=== PATIENT | male | born 1960 | race Caucasian/White ===

== ENCOUNTER 2016-11-07 14:16 | Inpatient (IN) | payer OTHER ==
[~2016-11-07] VITALS: Ht 177.8 cm; Wt 146.2 kg
--- NOTE | ~2016-11-07 | EKG ---
PATIENT: SHANDRA KIM UNIT #: [id number] Ventricular Rate: 97 BPM Atrial Rate: 89 BPM QRS Duration: 100 ms Q-T Interval: 362 ms QTC Calculation(Bezet): 459 ms Calculated R [place]: 84 degrees Calculated T [place]: 130 degrees Diagnosis Line: Atrial fibrillation Diagnosis Line: Nonspecific T wave abnormality , probably Diagnosis Line: digitalis effect Diagnosis Line: Abnormal ECG Diagnosis Line: When compared with ECG of 07-NOV-2016 14:22, Diagnosis Line: No significant change was found Diagnosis Line: Confirmed by BRAN DAVID MD ([id number]) on Diagnosis Line: 11/08/2016 10:39:29 PM INTERPRETING MD: RAMAN
--- NOTE | ~2016-11-07 | CR72 ---
[facility] RADIOLOGY TEXT RESULTS PATIENT: SHANDRA KIM JR LOCATION: [facility] : 60 UNIT #: [id number] AGE: [address]: Indra Sharma MD SEX: M ORDER DR: [id number] [place], [place] [address] [id number] I MR#: [id number] Acc #: [id number] NAME: SHANDRA KIM JR : 1960 SEX: M STUDY DATE/TIME: 11/07/2016 15:07 UNIT: [address] ROOM: [address] [place] [address] DESCRIPTION: CR Chest Single View Portable Attending Physician: Latesha Whitney M.D. Ordering Physician: [facility] Primary Care Physician: Baldomero Donald M.D. MEDICAL IMAGING REPORT This report is preliminary unless electronic signature is present EXAM Portable chest x-ray 11/07/2016 HISTORY Shortness of air. Palpitations. Symptoms 1 month duration. Congestive heart failure. Atrial fibrillation. Diabetes. TECHNIQUE Two AP radiographs of the chest are presented. COMPARISON STUDIES Comparison from earlier on the same day. FINDINGS Moderate cardiac enlargement, stable. No acute-appearing bony abnormality. The lungs are well-inflated. There is no evidence of acute infectious or inflammatory disease, pleural effusion or pneumothorax. No suspicious nodule. Dictated by... Payam Dietrich M.D. THIS IS AN ELECTRONICALLY VERIFIED REPORT Payam Dietrich M.D. at 11/09/2016 2:47 PM CLARE/roseanna TD: 11/07/2016 21:02 JOB #: [id number] MEDICAL IMAGING REPORT [facility] RADIOLOGY TEXT RESULTS PATIENT: SHANDRA KIM JR LOCATION: [facility] : 60 UNIT #: [id number] AGE: [address]: Indra Sharma MD SEX: M ORDER DR: Page 1 of 1 COPY
--- NOTE | ~2016-11-07 | DS ---
Unit #: [id number] #: [id number] Patient: SHANDRA KIM JR [id number] [address] [address] [id number] I MR#: [id number] NAME: SHANDRA KIM JR ROOM: 308 Age: 56 Sex: M Admission Date: 11/07/2016 : 1960 Discharge Date: 11/14/2016 Attending Physician: Ignacio Abraham M.D. Primary Care Physician: Baldomero Donald M.D. DISCHARGE SUMMARY PERTINENT HISTORY AND HOSPITAL COURSE The patient is a 56-year-old man with a past medical history significant for congestive heart failure, valvular heart disease, obstructive sleep apnea, diabetes mellitus, hypertension, hyperlipidemia who presented with symptoms of shortness of breath and chest tightness. During his admission, the patient had an echocardiogram (transthoracic) that demonstrated a left ventricular systolic function which was severely reduced 20% to 25%, severe global hypokinesis of the left ventricle, right ventricular systolic pressure of 60 mmHg, severe mitral regurgitation, and severe tricuspid regurgitation. The patient also underwent a cardiac catheterization that demonstrated left ventricular ejection fraction of 20%. No angiographic evidence of MR. LAD had a 50% stenosis, diagonal 70% stenosis. Cardiology suggested medical management. Also during his admission, his creatinine was initially noted to be elevated at 1.5. It subsequently improved to 1.1. Nephrology recommended diuresis with torsemide. Bumex was discontinued. Cardiology started the patient on Entresto. Patient is currently breathing comfortably. His vitals are stable. The patient will be discharged today. DISCHARGE DIAGNOSES 1. Acute on chronic systolic congestive heart failure. 2. Severe pulmonary hypertension. 3. Atrial fibrillation. 4. Diabetes mellitus. 5. Morbid obesity with acute on chronic renal failure. DISCHARGE MEDICATIONS 1. Digoxin 0.25 mg p.o. once daily. 2. Metoprolol 100 mg twice daily. 3. Clonidine 0.1 mg p.o. twice daily. 4. Lantus insulin 30 units subcutaneous at bedtime. 5. NovoLog FlexPen 4 units subcutaneous a.c. meals. 6. Entresto 24 mg tab one p.o. twice daily. 7. Magnesium oxide 400 mg daily. 8. Eliquis 5 mg p.o. b.i.d. 9. Lipitor 80 mg p.o. at bedtime. 10. Aspirin 81 mg once daily. 11. Potassium 20 mEq twice daily. 12. Glipizide 10 mg p.o. b.i.d. 13. Isosorbide 20 mg p.o. twice daily. 14. Torsemide 40 mg p.o. twice daily. DISCHARGE INSTRUCTIONS 1. Patient to follow up with nephrology, Dr. Deutsch, in four to six Unit #: [id number] #: [id number] Patient: SHANDRA KMI [facility]. 2. Patient to follow up with cardiology, Dr. Miner, on January 15. 3. Patient to follow up with primary care physician. Dictated by... Red Koehler TD: 11/15/2016 13:37 JOB #: [id number] DISCHARGE SUMMARY Page 1 of 1 X X DISCHARGE SUMMARY
--- NOTE | ~2016-11-07 | HP ---
Unit #: [id number] #: [id number] Patient: SHANDRA KIM JR [id number] [facility]. [place], [place] [address] [id number] MR#: [id number] NAME: SHANDRA KIM JR ROOM: 308 Age: 56 Sex: M Admission Date: 11/07/2016 : 1960 Attending Physician: Latesha Whitney M.D. Primary Care Physician: Baldomero Donald M.D. HISTORY AND PHYSICAL CHIEF COMPLAINT Shortness of breath. HISTORY OF PRESENT ILLNESS The patient is a 56-year-old male with past medical history of CHF, valvular heart disease, obstructive sleep apnea, diabetes, hypertension, hyperlipidemia, who presented to the emergency department for evaluation of the above. The patient states that he has had worsening symptoms for the past month. He states that he has had increasing shortness of breath and intermittent chest tightness. He states that he had dyspnea on exertion when walking "10 feet." He also reports palpitations. He has two pillow orthopnea as well as paroxysmal nocturnal dyspnea. He denies any fever. No cough. He states that he has noted increased lower extremity swelling. He does not routinely weight himself. He states that he has been out of some medications. He notes he has been out of spironolactone. He is not sure which other medication he has been out of. He saw his primary care physician today. Heart rate was noted to be in the 120s. Oxygen saturation dropped to 84% on room air. He was sent to the emergency department for further evaluation. In the emergency department the patient's initial pulse and blood pressure were 124 and 141/112 respectively. Oxygen saturation was 95% on room air. EKG showed atrial fibrillation with rapid ventricular response and a rate of 117 beats per minute. Chest x-ray showed findings concerning for congestive heart failure. Initial troponin was 0.13. Laboratory also notable for potassium of 3.3, glucose 260, BUN and creatinine 20 and 1.5 respectively. He received 20 mg of Cardizem in the emergency department. Heart rate is currently 92. He was initially seen by Cardiology. [facility] was asked to admit. PAST MEDICAL HISTORY 1. Admission to [facility] July 07, 2009 for congestive heart failure. 2. Congestive heart failure. The patient had a transesophageal echocardiogram October 19, 2009 that showed moderate concentric left ventricular hypertrophy, ejection fraction 35% to 40%. moderate mitral regurgitation, mild to moderate tricuspid regurgitation. The patient is followed by Dr. Ortiz. 3. Atrial fibrillation, on chronic anticoagulation with Eliquis. 4. Valvular heart disease with echocardiogram, results as noted above. 5. Hypertension. 6. Hyperlipidemia. 7. Diabetes. The patient states that his blood sugars are typically in Unit #: [id number] #: [id number] Patient: SHANDRA KIM JR the 250 to 400 range. 8. Obstructive sleep apnea, on CPAP. PAST SURGICAL HISTORY 1. Cardiac catheterization. The patient had a cardiac catheterization July 12, 2009 that showed moderately severe pulmonary hypertension and minimal coronary artery disease. 2. Wrist surgery. 3. Hernia repair. SOCIAL HISTORY The patient lives with his . He denies tobacco or alcohol use. He typically walks without assistance. He works as an artist. His code status is a Full Code. FAMILY HISTORY Family history is notable for his mother having valvular heart disease and congestive heart failure. ALLERGIES No known allergies. HOME MEDICATIONS 1. Bumex 2 mg b.i.d. 2. Meloxicam 15 mg daily p.r.n. 3. Metformin 1000 mg b.i.d. 4. Metoprolol 150 mg b.i.d. 5. Catapres 0.1 mg t.i.d. 6. Glipizide 10 mg b.i.d. 7. Eliquis 5 mg b.i.d. 8. Avapro 300 mg q.h.s. 9. Lantus 30 units subcu q.h.s. REVIEW OF SYSTEMS A complete review of systems is negative except as indicated in the HPI. DIAGNOSTIC STUDIES CARDIOVASCULAR: EKG shows atrial fibrillation with rapid ventricular response and a rate of 117 beats per minute. IMAGING: Chest x-ray shows moderate cardiac enlargement and vascular congestion. LABORATORY: Complete blood count notable for white blood cell count of 10.9. Troponin is 0.13. INR is 1. Basic metabolic panel notable for potassium of 3.3, chloride is 97 and glucose 260, BUN and creatinine 20 and 1.5 respectively. PHYSICAL EXAMINATION VITAL SIGNS: Temperature is 98.3. Pulse 124. Respirations 18. Blood pressure 141/112. Oxygen saturation 95% on room air. GENERAL: The patient is a very pleasant male who is awake and alert, in no acute distress. HEENT: The head is atraumatic. Mucous membranes are moist. NECK: Neck is supple. Trachea is midline. CARDIOVASCULAR: Irregular. LUNGS: Demonstrate decreased breath sounds. Breathing is mildly labored with conversation. Unit #: [id number] #: [id number] Patient: SHANDRA KIM JR ABDOMEN: Abdomen is obese, soft, nontender, with bowel sounds in all four quadrants. EXTREMITIES: Show 1 to 2+ edema. NEUROLOGIC: The patient is awake and alert. He follows commands. PSYCHIATRIC: Mood and affect are normal. The patient is cooperative. SKIN: Skin of examined areas is warm and dry. ASSESSMENT The patient is a 56-year-old male with: 1. Atrial fibrillation with rapid ventricular response. The patient received 20 mg of Cardizem in the emergency department. Heart rate is currently in the 90s. 2. Congestive heart failure exacerbation. The patient's ejection fraction was 35% to 40% on echocardiogram from October 19, 2009. He possibly had an echocardiogram at Dr. Ortiz's office around six weeks ago (no records). 3. Acute kidney injury. The patient's creatinine has previously been normal. It is 1.5 today. He is on metformin as well as Mobic and Bumex which could be contributing. 4. Hypokalemia. 5. Chest pain with an initial troponin of 0.13. The patient had a cardiac catheterization in 2009 that showed minimal coronary artery disease. 6. Valvular heart disease as noted in the echocardiogram from 2009. 7. Obstructive sleep apnea, on CPAP. 8. Chronic anticoagulation with Eliquis. 9. Uncontrolled diabetes with initial blood sugar of 260. 10. Hypertension. 11. Hyperlipidemia. 12. Morbid obesity with a BMI of 47. PLAN 1. Admit to intermediate level. 2. Two gram sodium 1800 mL fluid restricted heart healthy consistent carb diet. 3. Serial cardiac enzymes. 4. TSH. 5. Monitor heart rate closely. 6. Consult Dr. Miner regarding atrial fibrillation with rapid ventricular response, CHF and chest pain. She has already seen the patient and written orders. 7. Check urinalysis with culture and sensitivity. 8. Bladder scan, check post-void residual. 9. CPK on blood in the lab. 10. Hold nephrotoxic medications including Bumex, Meloxicam, metformin. 11. Dr. Polanco has already been consulted by Dr. Miner regarding acute kidney injury. 12. Replace potassium. 13. Check magnesium level. 14. Supplemental oxygen. 15. CPAP at home settings. 16. Hemoglobin A1C. 17. Low dose sliding scale insulin with Accu-Chek. 18. Repeat labs in the morning. 19. Additional workup and consultants based on above. 20. Regarding code status, the patient is a Full Code. Unit #: [id number] #: [id number] Patient: SHANDRA KIM Jose F Dictated by Red Tirado/jareth TD: 11/07/2016 20:07 JOB #: [id number] HISTORY AND PHYSICAL Page 1 of 1 X Latesha Whitney MD HISTORY AND PHYSICAL
--- NOTE | ~2016-11-07 | EKG ---
PATIENT: SHANDRA KIM UNIT #: [id number] Ventricular Rate: 104 BPM Atrial Rate: 91 BPM QRS Duration: 100 ms Q-T Interval: 374 ms QTC Calculation(Bezet): 491 ms Calculated R [place]: 85 degrees Calculated T [place]: 93 degrees Diagnosis Line: Atrial fibrillation with rapid ventricular Diagnosis Line: response Diagnosis Line: Nonspecific T wave abnormality , probably Diagnosis Line: digitalis effect Diagnosis Line: Abnormal ECG Diagnosis Line: When compared with ECG of 08-NOV-2016 06:20, Diagnosis Line: No significant change was found Diagnosis Line: Confirmed by YASMINE TOMPKINS MD ([id number]) on 11/13/2016 Diagnosis Line: 10:10:18 PM INTERPRETING MD: LEDA KAUR
--- NOTE | ~2016-11-07 | EKG ---
PATIENT: SHANDRA KIM UNIT #: [id number] Ventricular Rate: 117 BPM Atrial Rate: 117 BPM QRS Duration: 102 ms Q-T Interval: 376 ms QTC Calculation(Bezet): 524 ms Calculated R [place]: 73 degrees Calculated T [place]: 137 degrees Diagnosis Line: Atrial fibrillation with rapid ventricular Diagnosis Line: response with premature ventricular or aberrantly Diagnosis Line: conducted complexes Diagnosis Line: Nonspecific T wave abnormality Diagnosis Line: Prolonged QT Diagnosis Line: Abnormal ECG Diagnosis Line: When compared with ECG of 21-MAR-2015 09:19, Diagnosis Line: Non-specific change in ST segment in Inferior Diagnosis Line: leads Diagnosis Line: ST now depressed in Lateral leads Diagnosis Line: T wave inversion no longer evident in Inferior Diagnosis Line: leads Diagnosis Line: Confirmed by BRAN DAVID MD ([id number]) on Diagnosis Line: 11/07/2016 3:35:09 PM INTERPRETING MD: RAMAN
--- NOTE | ~2016-11-07 | A ---
[facility] Nutrition Therapy DATE: 11/08/16 Patient: SHANDRA Kohler JR JUDY Physician: KEE Address: [address] [address] [facility] Room/Bed: [address] [place] [address], Zip: [place] [address] Admit Date: 11/07/16 Date of : [birth year] Height: 5 10 Weight: 326 148.2 NUTRITIONAL ASSESSMENT: REASON: High BMI documentation, consult for evaluation Admitting dx: 56 y/o male admitted with SOB (CHF exacerbation) PMH: CHF, DM, HTN, HLD, RAMÍREZ on CPAP, valvular heart disease Anthropometrics: Ht: 70", Wt: 148.2 kg, BMI 46 (stage III obese) Labs: glucose 301, POC 210-273, A1C 10.9, triglycerides 722 Meds: Glucotrol, dobutamine/D5, low SSI, levemir Diet: 2g sodium + 1800 ml fluid restriction Assessment: Chart reviewed, events noted. See admitting dx and PMH as stated above. RD consulted to evaluate the patient, who needs diet education. Stated his blood glucose usually ranges between 250-400 at home and he takes insulin and oral DM medications at home. RD provided verbal and written education on low sodium diet and fluid restriction, emphasizing daily weights and the relationship between salt, fluids, weight fluctuations and CHF. The patient was also given written diabetes diet education with an 1800 calorie/day 5-day sample meal plan, however he did not wish to verbally review the diabetes handouts with me at this time, stating he did not feel well and has received diet education in the past. He lives with his , but she was not present for the education. The patient was compliant throughout the education, but seemed somewhat uninterested. I suspect questionable compliance with diet after discharge. See recs below. Recommendations: 1. RD adding 75 g carb/meal diet restriction to current diet order (2g sodium + 1800 ml fluid restriction) due to hx of DM, elevated A1C and hyperglycemia. 2. RD provided diet education as described above. Encourage compliance with low sodium restriction, fluid restriction and consistent carb diet after discharge. Encourage weight loss. 3. Daily weights. 4. Consider adding a daily statin and 2g omega 3 fatty acids to the patient's medication regimen to help lower serium triglycerides. [facility] Nutrition Therapy DATE: 11/08/16 Patient: SHANDRA KIM JR Physician: KEE Address: [address] [facility] Room/Bed: [address] [place] [address], Zip: [place] [address] Admit Date: 11/07/16 Date of : [birth year] Height: 5 10 Weight: 326 148.2 Respectfully, Joyce Estrada RD, LD [facility] cc: client file
--- NOTE | ~2016-11-07 | CO ---
Unit #: [id number] #: [id number] Patient: SHANDRA KIM JR [id number] [address] [id number] I MR#: [id number] NAME: SHANDRA KIM JR ROOM: 308 Age: 56 Sex: M Admission Date: 11/07/2016 : 1960 Attending Physician: Indra Sharma M.D. Primary Care Physician: Baldomero Donald M.D. Consultation Date: 11/07/2016 CONSULTATION REPORT ADDENDUM FAMILY HISTORY Mother has a history of congestive heart failure and atrial fibrillation as well as valvular abnormality with a history of valve replacement. Dictated by... Stefani Hidalgo A.P.R.N. LMW/gz TD: 11/08/2016 09:05 JOB #: [id number] CONSULTATION REPORT Page 1 of 1 X Stefani Hidalgo APRN X CONSULTATION REPORT
--- NOTE | ~2016-11-07 | CO ---
Unit #: [id number] #: [id number] Patient: SHANDRA KIM JR [id number] [facility]. [address] [place], [place] [address] [id number] I MR#: [id number] NAME: SHANDRA KIM JR ROOM: 308 Age: 56 Sex: M Admission Date: 11/07/2016 : 1960 Attending Physician: Indra Sharma M.D. Primary Care Physician: Baldomero Donald M.D. Consultation Date: 11/07/2016 CONSULTATION REPORT HISTORY OF PRESENT ILLNESS This is a pleasant 56-year-old, morbidly obese, male who typically follows with Dr. Ortiz. He reports he saw him approximately six weeks ago in the office. The patient has a known past medical history of hypertension, hyperlipidemia, diabetes mellitus type 2, obesity, obstructive sleep apnea compliant with CPAP, paroxysmal atrial fibrillation on chronic anticoagulation on Eliquis, and systolic congestive heart failure as well as valvular heart disease. The patient reports to me that he has been having increasing issues for the last couple of months with shortness of breath with minimal activity and fatigue but he states he has just been dealing with it. He reports yesterday evening he went to sleep with his CPAP on and woke from sleep choking and gagging and couldn't breathe. He states he sat up on the side of the bed, the breathing eased, but he did also feel his heart racing at that time. He also reports he has been noticing some lower extremity swelling recently as well as some episodes of chest tightness. The patient went in to see Dr. Donald, his primary care physician, who did an EKG on him in the office and found him to be in atrial fibrillation with RVR and, based on his symptoms, recommended he come to the emergency room for evaluation. On arrival to the ER, EKG was performed which did show and confirmed atrial fibrillation with a rapid ventricular rate of 117 beats per minute, occasional PVC, nonspecific T wave abnormality was noted. QTC interval was 524 msec. No acute ischemic change was noted. Point of care troponin was 0.13. The patient received 20 mg of Cardizem IV push. It was also notable that his blood pressure was elevated on arrival to the emergency room at 141/112. His heart rate has slowed at this time and is more controlled. He has been evaluated in room T14. He still is complaining of some shortness of breath with minimal exertion but denies any further chest tightness at this time. The patient also states that his diet is not good and his diabetes is poorly controlled. It is also notable the patient's creatinine was found to be elevated at 1.5 which is up from his most recent creatinine level of 0.9 back in February of 2015 and was also noted to have a potassium level of 3.3. It is also notable the patient had some history of valvular heart disease which has been monitored over the last several years. His most recent MIKAELA in 2009 showed an LVEF of 35 to 40 with moderate MR, mild to moderate TR and moderate LVH. The patient reports that Dr. Ortiz Unit #: [id number] #: [id number] Patient: SHANDRA KIM JR has told him that his heart function has been improving over time as there was some question at one point about him having valve replacement surgery. However, this was never performed. PAST MEDICAL HISTORY 1. Hypertension. 2. Dyslipidemia. 3. Obstructive sleep apnea, compliant with CPAP. 4. Degenerative joint disease. 5. Diabetes mellitus type 2. 6. Paroxysmal atrial fibrillation, on anticoagulation with Eliquis. 7. Chronic CHF. 8. Valvular heart disease. 9. MIKAELA in 2009 showed an LVEF of 35 to 40, moderate MR, mild to moderate TR and moderate LVH. 10. Left heart cath in 2009 showed moderate to severe pulmonary hypotension with some reversibility and minimal coronary artery disease. PAST SURGICAL HISTORY 1. Incarcerated ventral hernia repair. 2. Left and right heart cath in 2009. 3. History of cardioversion, unsuccessful, in 2009. 4. Morbid obesity. HOME MEDICATIONS 1. Bumex 2 mg p.o. b.i.d. 2. Mobic 15 mg p.o. daily. 3. Glucophage 1000 mg p.o. b.i.d. 4. Metoprolol succinate 150 mg p.o. b.i.d. 5. Catapres 0.1 mg p.o. t.i.d. 6. Glipizide 10 mg p.o. b.i.d. 7. Eliquis 5 mg p.o. b.i.d. 8. Avapro 300 mg p.o. q. h.s. 9. Lantus 30 units subcu at bedtime. ALLERGIES No known drug allergies. 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 He is self-employed. He is a lifelong nonsmoker. He denies illicit drugs or alcohol use. He is blind in his right eye. REVIEW OF SYSTEMS GENERAL: Positive for weight gain and fatigue. NEUROLOGICAL: He denies focal weaknesses. Does report some paresthesia in his fingers and toes. GI: Denies abdominal pain, melena or hematochezia. : Does report urinary hesitancy but denies any hematuria or dysuria. ENDOCRINE: Positive for diabetes. No history of thyroid disease. CARDIOVASCULAR: As stated above. PULMONARY: Positive for obstructive sleep apnea, compliant with CPAP. Does report shortness of breath, PND and orthopnea. EXTREMITIES: Positive intermittent lower extremity swelling. Denies DVT or easy bruising. PHYSICAL EXAMINATION Unit #: [id number] #: [id number] Patient: SHANDRA KIM GENERAL: This is a pleasant 56-year-old, morbidly obese, male evaluated in room T14 in the emergency room. He is currently in no acute distress. He just returned from the bathroom and is visibly short of breath with minimal ambulation. Patient's BMI is about 47. VITAL SIGNS: Temperature 98.2, respiratory rate 18-20, pulse currently 90, blood pressure 122/81, BMI is 47. HEENT: Head is atraumatic, normocephalic. Pupils are equal and round. The patient is blind in the right eye. NECK: Trachea is midline. No lymphadenopathy or JVD. Carotid upstrokes are normal. CARDIOVASCULAR: S1, S2. Irregularly irregular rhythm. No murmur, gallop or rub. PULMONARY: Lungs are clear to auscultation. No adventitious breath sounds. No rales, no rhonchi or wheezes. ABDOMEN: Soft, obese, pannus. Nontender, nondistended. Bowel sounds are present. EXTREMITIES: Pulses are palpable. No clubbing, cyanosis is noted. The patient does have about 1+ pedal edema bilaterally. NEUROLOGIC: He is awake, alert and oriented. He moves all extremities equally. He is able to answer questions with ease and follow commands without difficulty. SKIN: Warm and dry. No open wounds are noted. DIAGNOSTIC STUDIES IMAGING: Chest x-ray shows some cardiac enlargement but no acute disease. LABORATORY: Sodium 140, potassium 3.3, chloride 97, CO2 30, BUN 20, creatinine 1.5, glucose 260, troponin point of care was 0.13. Hemoglobin 13.3, hematocrit 38.9, WBC 10.9, platelet count 222. CARDIOVASCULAR: EKG shows atrial fibrillation with rapid ventricular response, rate of 117 beats per minute. Nonspecific T wave abnormality is noted. No acute ischemic change. QTC interval is 524 msec. IMPRESSION 1. Atrial fibrillation with RVR with a known history of chronic atrial fibrillation on chronic anticoagulation therapy with Eliquis. 2. Acute on chronic systolic CHF, last known MIKAELA EF was 35 to 40. However, the patient does state he has had improvement in his ejection fraction and is followed by Dr. Ortiz. 3. History of valvular heart disease with moderate mitral regurgitation, mild to moderate tricuspid regurgitation, and moderate LVH. Again, this has improved, according to the patient, over time and there was no need for valvular surgery. 4. Pulmonary hypertension. 5. Hypertension. 6. Hyperlipidemia. 7. Diabetes mellitus type 2. 8. Morbid obesity. 9. Obstructive sleep apnea, compliant with CPAP. 10. Hypokalemia. 11. Acute kidney injury. PLAN 1. The patient has been admitted for increasing shortness of breath, PND and orthopnea as well as complaints of chest tightness. He was found to be in atrial fibrillation with RVR. The patient has been given a Cardizem bolus and his rate has slowed. Will plan to resume his Unit #: [id number] #: [id number] Patient: SHANDRA KIM Jose F RICHARDSON metoprolol for rate control. His Eliquis will be placed on hold at this time in case cardiac intervention is needed. Initial point of care troponin was 0.13. Will trend cardiac enzymes with orders to call if troponin is greater than 0.5. Will also check BNP to blood in lab as well as a fasting lipid profile. Hemoglobin A1c and a TSH. 2. Will repeat 2D echocardiogram to reassess left ventricular systolic function as well as his valvular abnormalities. I will also get supervisor mold shop to see as the patient has issues with his diabetes and dietary restriction. He will be started on Lovenox 120 mg subcu daily and that is to be started on 10/29/2016. Will repeat BMP, troponin and EKG in the morning. 3. Will also ask Dr. Polanco to evaluate the patient for acute kidney injury. For now, his diuretics will be placed on hold and his irbesartan will also be stopped. 4. Further recommendations regarding ischemic workup will be determined after the echo is reviewed. The patient may need repeat ischemic evaluation in the near future. If he rules in for acute coronary syndrome, then most likely cardiac cath will need to be considered. I have also discussed with the patient the importance of losing weight. Further recommendations pending the outcome of repeat 2D echocardiogram and diuretics per renal recommendations. All of this was discussed with the patient and the and they were agreeable and willing to proceed. Also, we are asking HIPS to be the admitting physician on this case as the patient does have multiple medical issues that need management. Dictated by... Stefani Hidalgo A.P.R.N. for Namrata Miner M.D. LMW/df TD: 11/08/2016 09:29 JOB #: [id number] CONSULTATION REPORT Page 1 of 1 X Stefani Hidalgo APRN X CONSULTATION REPORT
--- NOTE | ~2016-11-07 | CO ---
Unit #: [id number] #: [id number] Patient: SHANDRA SEGURA JR [id number] [address] [place], [place] [address] [id number] MR#: [id number] NAME: SHANDRA SEGURA JR ROOM: 308 Age: 56 Sex: M Admission Date: 11/07/2016 : 1960 Attending Physician: Indra Sharma M.D. Primary Care Physician: Baldomero Donald M.D. Consultation Date: 11/07/2016 CONSULTATION REPORT REASON FOR CONSULT Acute kidney injury. HISTORY OF PRESENT ILLNESS Mr. Segura is a very pleasant 56-year-old gentleman with a history of known congestive heart failure, valvular heart disease, hypertension and diabetes, who was admitted with worsening dyspnea on exertion. The patient was found to be in A-fib with rapid ventricular response on admission with a pulse of 124 and was given some IV Cardizem. Cardiology has been asked to see. His normal warehouse director is Dr. Ortiz who does not come here to the hospital anymore as he is a [facility]'s physician. The patient states that this problem with his breathing has been gradually getting worse to the point where he sought care with Dr. Donald today. He does take diuretics at home and was taking extra Bumex. He does not do daily weights but does feel like he has gained weight, especially with swelling in his legs and abdomen. He did not have any chest pain with the atrial fibrillation. He denies any urinary complaints. No history of NSAID use, no history of kidney stones, no recent nausea, vomiting or diarrhea. PAST MEDICAL HISTORY 1. Significant for atrial fibrillation. 2. Congestive heart failure with an EF of 35%. 3. Valvular heart disease with severe mitral regurgitation and tricuspid regurgitation. 4. Pulmonary hypertension. 5. Obstructive sleep apnea. 6. Hypertension. 7. Diabetes. PAST SURGICAL HISTORY 1. Pelvic fracture. 2. Wrist fracture. 3. Hernia repair. MEDICATIONS Home medicines are as follows: 1. Bumex 2 mg twice a day. 2. Mobic 15 mg a day. 3. Glucophage 1000 mg twice a day on hold. 4. Metoprolol succinate 150 mg twice a day. 5. Catapres 0.1 mg three times a day. 6. Glipizide 10 mg twice a day. 7. Eliquis 5 mg twice a day. Unit #: [id number] #: [id number] Patient: SHANDRA SEGURA JR 8. Avapro 300 mg at bedtime. 9. Lantus insulin as directed. ALLERGIES He has no known drug allergies. FAMILY HISTORY There is a family history of congestive heart failure. There is no family history of kidney disease or dialysis with the exception of a distant cousin. SOCIAL HISTORY The patient does use marijuana. He denies alcohol, tobacco or IV drug use. REVIEW OF SYSTEMS A complete 12-point review of systems was completed with the above findings. In addition, he denies any headache, no dizziness, no nosebleed, sore throat or earache, no cough or hemoptysis, no bright red blood per rectum or melena, no dysuria or hematuria, no rashes or itching, no flank pain, no fevers or chills, no night sweats or hot flashes, no intolerance to heat or cold, no bleeding issues on his Eliquis. Again, he does think he has gained weight but cannot quantitate it. Unless otherwise indicated, the review of systems was negative. PHYSICAL EXAMINATION VITAL SIGNS: The patient is afebrile. Pulse 90, respiratory rate 20, blood pressure 133/86. GENERAL: This is a pleasant 56-year-old male sitting in the chair, alert, talkative, in no acute distress. HEENT: Head is atraumatic, normocephalic. Eyes show pink conjunctivae with no scleral icterus. No nasal drainage or nose bleed. Oropharynx is moist. No thrush. He has a very narrow posterior pharyngeal airway. NECK: Thick with no rigidity. HEART: Now regular rate but irregular with distant S1, S2. No gallop or rub appreciated. LUNGS: Diminished with no wheezing or rhonchi. Breathing is nonlabored. ABDOMEN: Morbidly obese, soft, nontender. Bowel sounds are present without masses. EXTREMITIES: No lower extremity cyanosis noted. He has tense lower extremity edema below the knees bilaterally. SKIN: Dry with no rashes. MUSCULOSKELETAL EXAM: No joint effusions noted, no CVA tenderness to palpation. NEUROLOGICAL EXAM: Cranial nerves are grossly intact with no gross motor deficits. LYMPHATIC EXAM: There is no neck cervical lymphadenopathy. PSYCHIATRIC EXAM: Mood and affect appear normal. DIAGNOSTIC STUDIES LABORATORY: Lipid profile showed high triglycerides at 722. CK level was 351. BNP was 192. Troponin 0.96. Chemistry on admission showed a sodium of 140, potassium 3.3, chloride 97, bicarb 30, glucose 260, BUN 20, creatinine 1.5, INR was 1. Admission CBC showed a white count of 10.9, hemoglobin 13, platelet count 222 with no peripheral eosinophilia. Prior creatinine here at [place] Unit #: [id number] #: [id number] Patient: SHANDRA SEGURA JR back in 2015 was 0.9 and normal. No previous UA's here. IMAGING: I did review previous imaging. I do not see any dedicated kidney imaging done. ASSESSMENT AND PLAN 1. Acute kidney injury: This is likely multifactorial and prerenal from his atrial fibrillation. Home Mobic use as well as an angiotensin receptor miki. He had also been taking extra Bumex. In addition, he could have some worsening kidney function from poorly controlled blood pressure as he says his blood pressure has been very high at home. Do agree with stopping his Meloxicam and his angiotensin receptor miki which Dr. Whitnye has done. We will also need to hold his metformin due to his renal insufficiency. I will check a urinalysis as well as quantitate urinary protein levels with his diabetes. Would avoid NSAIDs during the hospitalization and he would be at a moderate risk for heart catheterization dye and will need prep with fluids and Mucomyst if that is needed. 2. Hypokalemia. This is being replaced and I will recheck a level later tonight. Magnesium level has also been ordered. 3. Congestive heart failure which is systolic in nature. Patient does have dyspnea on exertion and says he dropped his sats into the low 80s at Dr. Donald's office. We will dose IV Bumex tonight with close monitoring of his potassium. 4. Hypertension. Patient's blood pressure is reasonable and most of his home medicines have been renewed except the Avapro. 5. Pulmonary hypertension with obstructive sleep apnea. 6. A-fib, now rate controlled. Cardiology seeing. 7. Diabetes. A1c has been ordered. His metformin should be held. 8. Obstructive sleep apnea, on CPAP at home. Would like to thank Dr. Whitney for this consult and the opportunity to participate in the evaluation and care of Mr. Segura. Dictated by... Pepito Deutsch Jr., M.D. SJK/raymond TD: 11/08/2016 11:06 JOB #: [id number] CONSULTATION REPORT Page 1 of 1 X Pepito Deutsch MD CONSULTATION REPORT
[~2016-11-07 14:16] MED LIST: ALDACTONE25 MG PO; ANTARA43 MG PO; ASPIRIN PO; ASPIRIN81 M1 PO; ASPIRIN81 MG PO; AVAPRO PO; AVAPRO300 M1 PO; BUMEX2 MG PO; CARDIZEM CD120 MG PO; CARDIZEM CD180 M1 PO; CARDIZEM CD180 M2 PO; CATAPRES0.1 MG PO; CLONIDINE HCL0.1 MG PO; COMBIVENT INH14.7 GM PO; COMBIVENT RESPIM4 GM; COMBIVENT U/D3 ML INH; CORDARONE200 M1 PO; COUMADIN5 MG PO; DILTIAZEM 24HR180 M1 PO; FENOFIBRATE160 MG PO; FLONASE 0.05% N16 GM; FLOVENT DISKU250 MCG INH; FUROSEMIDE40 MG PO; GLIPIZIDE10 MG PO; GLUCOPHAGE500 M1 PO; HCTZ PO; K-DUR20 ME2 PO; KCL PO; LASIX PO; LODINE PO; LODINE400 MG PO; LOVENOX120 MG/0.8 SUBQ; LOVENOX150 MG/ML SQ; METFORMIN HCL500 M2 PO; METOPROLOL SUCC50 MG PO; MOBIC15 MG PO; NORVASC PO; POTASSIUM CHLO10 ME1 PO; POTASSIUM CHLO10 ME2 PO; QVAR7.3 G1; QVAR7.3 G1 PO; TOPROL XL 50 MG50 MG PO; TOPROL XL PO; TOPROL XL50 MG PO; TRICOR PO; TYLOX 5/500 CAP1 CAP PO; XARELTO15 MG PO
[2016-11-07 15:10] LABS: BASOPHIL# 0.1 X10e3 (0-0.3); BASOPHIL% 0.6 % (0-2.5); EOSINOPHIL# 0.1 X10e3 (0-0.7); EOSINOPHIL% 1.3 % (0.0-7.0); HEMATOCRIT 38.9 % (38.0-50.0); HEMOGLOBIN 13.3 gm/dL (13.0-16.0); LYMPHOCYTE# 2.8 X10e3 (1.0-3.5); LYMPHOCYTE% 25.8 % (17.0-45.0); MEAN CELL VOLUME 84.8 FL (83-96); MEAN CORPUSCULAR HGB CONC 34.2 g/dL (30-36); MEAN PLATELET VOLUME 7.6 FL (6.5-11.5); MONOCYTE# 0.9 X10e3 (0-1.0); MONOCYTE% 8.4 % (3.0-12.0); NEUTROPHIL# 6.9 X10e3 (1.5-7.1); NEUTROPHIL% 63.9 % (40-75); PLATELET COUNT 222 X10e3 (140-420); RED BLOOD COUNT 4.59 X10e (3.90-5.60); RED CELL DISTRIBUTION WIDTH 14.8 % (11.0-15.5); WHITE BLOOD COUNT 10.9 X10e3 (4.0-10.5)
[2016-11-07 15:13] LABS: DIFF IND NO
[2016-11-07 15:22] LABS: POC - CKMB 4.2 ng/mL (0.0-7.9); POC - TROPONIN 0.13 ng/mL (<=0.05)
[2016-11-07 15:26] LABS: PARTIAL THROMBOPLASTIN TIME 24.8 SECONDS (23.5-31.3); PROTHROMBIN TIME (PATIENT) 11.3 SECONDS (10.0-11.7)
[2016-11-07 15:34] LABS: BUN/CREATININE RATIO 13.33; CALCIUM SERUM 8.9 mg/dL (8.4-10.2); CREATININE SERUM 1.5 mg/dL (0.6-1.4); GLOM FILT RATE Estimated 51.3 mL/min (>60); POTASSIUM 3.3 mmol/L (3.5-5.1)
[2016-11-07] MEDS ORDERED: BUMEX2 MG PO (16:00)
[2016-11-07] MEDS ORDERED: PATIENT'S PHARMACY (16:00)
[2016-11-07] MEDS ORDERED: METFORMIN PO (16:01)
[2016-11-07] MEDS ORDERED: CATAPRES0.1 MG PO (16:01)
[2016-11-07] MEDS ORDERED: METOPROLOL SUC100 MG PO (16:01)
[2016-11-07] MEDS ORDERED: MOBIC PO (16:01)
[2016-11-07] MEDS ORDERED: LANTUS SOL100 UNIT/1 SUBQ (16:02)
[2016-11-07] MEDS ORDERED: AVAPRO PO (16:02)
[2016-11-07] MEDS ORDERED: ELIQUIS5 MG PO (16:02)
[2016-11-07] MEDS ORDERED: GLIPIZIDE10 MG PO (16:02)
[2016-11-07 17:36] LABS: CHOLESTEROL 176 mg/dL (0-200); CK TOTAL 351 IU/L (36-174); HDL CHOLESTEROL 26 mg/dL (29-75); TRIGLYCERIDES 722 mg/dL (10-160)
[2016-11-07 17:56] LABS: %MB 1.4 % (0.0-4.0)
[2016-11-07 18:27] LABS: MAGNESIUM 1.4 mg/dL (1.6-3.0)
[2016-11-08 00:19] LABS: %MB 1.1 % (0.0-4.0)
[2016-11-08 01:08] LABS: URINE APPEARANCE CLEAR; URINE BILIRUBIN NEG (NEG); URINE BLOOD NEG (NEG); URINE COLOR YELLOW; URINE GLUCOSE NEG (NEG); URINE KETONE NEG (NEG); URINE LEUKOCYTE ESTERASE NEG (NEG); URINE NITRATE NEG (NEG); URINE PROTEIN 1+ (NEG); URINE SPECIFIC GRAVITY 1.011 (1.003-1.035); URINE UROBILINOGEN 0.2 MG/DL (NEG)
[2016-11-08 01:10] LABS: URBCS1 AUWI 0-2 /[HPF] (0-2); URINE BACTERIA AUWI NEG (NEGATIVE); URINE SQUAMOUS EPITHELIAL CELL NONE SEEN /[HPF]; UWBCS1 AUWI 0-2 (0-5)
[2016-11-08 01:16] LABS: CREATININE,RANDOM URINE 63 mg/dL; TOTAL PROTEIN,RANDOM URINE 31 mg/dl (<10)
[2016-11-08 06:08] LABS: HEMATOCRIT 37.9 % (38.0-50.0); HEMOGLOBIN 12.9 gm/dL (13.0-16.0); MEAN CELL VOLUME 85.1 FL (83-96); MEAN CORPUSCULAR HGB CONC 34.2 g/dL (30-36); MEAN PLATELET VOLUME 7.5 FL (6.5-11.5); RED BLOOD COUNT 4.46 X10e (3.90-5.60); RED CELL DISTRIBUTION WIDTH 14.7 % (11.0-15.5); WHITE BLOOD COUNT 11.6 X10e3 (4.0-10.5)
[2016-11-08 06:38] LABS: CHOLESTEROL 159 mg/dL (0-200); HDL CHOLESTEROL 26 mg/dL (29-75); MAGNESIUM 1.8 mg/dL (1.6-3.0); TRIGLYCERIDES 607 mg/dL (10-160)
[2016-11-08 06:55] LABS: %MB 1.2 % (0.0-4.0); MB 4.3 ng/ml
[2016-11-08 08:38] LABS: ALBUMIN SERUM 3.7 g/dL (3.5-5.0); CALCIUM SERUM 8.3 mg/dL (8.4-10.2); GLOM FILT RATE Estimated 83.8 mL/min (>60); POTASSIUM 3.5 mmol/L (3.5-5.1); PROTEIN TOTAL SERUM 7.2 g/dL (6.0-8.3)
[2016-11-09 05:18] LABS: HEMATOCRIT 35.2 % (38.0-50.0); HEMOGLOBIN 11.7 gm/dL (13.0-16.0); MEAN CELL VOLUME 86.8 FL (83-96); MEAN CORPUSCULAR HEMOGLOBIN 28.8 PG (28-34); MEAN CORPUSCULAR HGB CONC 33.1 g/dL (30-36); MEAN PLATELET VOLUME 7.6 FL (6.5-11.5); RED BLOOD COUNT 4.06 X10e (3.90-5.60); RED CELL DISTRIBUTION WIDTH 15.3 % (11.0-15.5); WHITE BLOOD COUNT 11.2 X10e3 (4.0-10.5)
[2016-11-09 07:10] LABS: BUN/CREATININE RATIO 17.27; CALCIUM SERUM 8.3 mg/dL (8.4-10.2); CREATININE SERUM 1.1 mg/dL (0.6-1.4); GLOM FILT RATE Estimated 74.7 mL/min (>60); MAGNESIUM 1.7 mg/dL (1.6-3.0); POTASSIUM 3.4 mmol/L (3.5-5.1)
[2016-11-10 06:24] LABS: GLOM FILT RATE Estimated 83.8 mL/min (>60); MAGNESIUM 1.6 mg/dL (1.6-3.0); POTASSIUM 3.3 mmol/L (3.5-5.1)
[2016-11-11 07:19] LABS: BUN/CREATININE RATIO 13.84; CALCIUM SERUM 9.3 mg/dL (8.4-10.2); CREATININE SERUM 1.3 mg/dL (0.6-1.4); MAGNESIUM 2.1 mg/dL (1.6-3.0); POTASSIUM 3.7 mmol/L (3.5-5.1)
[2016-11-12 07:55] LABS: HEMATOCRIT 40.9 % (38.0-50.0); HEMOGLOBIN 13.8 gm/dL (13.0-16.0); MEAN CELL VOLUME 86.1 FL (83-96); MEAN CORPUSCULAR HGB CONC 33.7 g/dL (30-36); MEAN PLATELET VOLUME 7.4 FL (6.5-11.5); RED BLOOD COUNT 4.76 X10e (3.90-5.60); RED CELL DISTRIBUTION WIDTH 14.9 % (11.0-15.5)
[2016-11-12 08:14] LABS: BUN/CREATININE RATIO 19.16; CALCIUM SERUM 9.2 mg/dL (8.4-10.2); CREATININE SERUM 1.2 mg/dL (0.6-1.4); GLOM FILT RATE Estimated 67.2 mL/min (>60); MAGNESIUM 1.8 mg/dL (1.6-3.0); POTASSIUM 3.8 mmol/L (3.5-5.1)
[2016-11-13 04:23] LABS: HEMATOCRIT 37.1 % (38.0-50.0); HEMOGLOBIN 12.7 gm/dL (13.0-16.0); MEAN CORPUSCULAR HEMOGLOBIN 29.1 PG (28-34); MEAN CORPUSCULAR HGB CONC 34.3 g/dL (30-36); RED BLOOD COUNT 4.36 X10e (3.90-5.60); RED CELL DISTRIBUTION WIDTH 14.6 % (11.0-15.5); WHITE BLOOD COUNT 10.3 X10e3 (4.0-10.5)
[2016-11-13 04:33] LABS: PARTIAL THROMBOPLASTIN TIME 24.6 SECONDS (23.5-31.3); PROTHROMBIN TIME (PATIENT) 10.8 SECONDS (10.0-11.7)
[2016-11-13 04:39] LABS: BUN/CREATININE RATIO 19.16; CREATININE SERUM 1.2 mg/dL (0.6-1.4); GLOM FILT RATE Estimated 67.2 mL/min (>60); MAGNESIUM 1.9 mg/dL (1.6-3.0); POTASSIUM 3.7 mmol/L (3.5-5.1)
[2016-11-13 08:56] LABS: ARTERIAL BLD GAS O2 SATURATION 93.5 % (90.0-100.0)
[2016-11-13 09:00] LABS: ARTERIAL BLD GAS O2 SATURATION 53.5 % (90.0-100.0)
[2016-11-14 06:37] LABS: BUN/CREATININE RATIO 19.09; CALCIUM SERUM 9.2 mg/dL (8.4-10.2); CREATININE SERUM 1.1 mg/dL (0.6-1.4); GLOM FILT RATE Estimated 74.7 mL/min (>60); MAGNESIUM 1.9 mg/dL (1.6-3.0); POTASSIUM 4.1 mmol/L (3.5-5.1)
[2016-11-14 08:27] LABS: ARTERIAL BLOOD GAS DELIVERY AO; ARTERIAL DRAW? NO
[2016-11-14 08:28] LABS: ARTERIAL BLOOD GAS DELIVERY RA
[2016-11-14] MEDS ORDERED: DIGOX0.25 MG PO (14:39)
[2016-11-14] MEDS ORDERED: ENTRESTO 24 MG1 EACH PO (14:42)
[2016-11-14] MEDS ORDERED: MAG-OX 400400 MG PO (14:43)
[2016-11-14] MEDS ORDERED: LIPITOR80 MG PO (14:45)
[2016-11-14] MEDS ORDERED: ASPIRIN EC81 M1 PO (14:45)
[2016-11-14] MEDS ORDERED: K-DUR20 ME1 PO (14:46)
[2016-11-14] MEDS ORDERED: ISORDIL PO (14:47)
[2016-11-14] MEDS ORDERED: DEMADEX PO (14:48)
[2016-11-14] MEDS ORDERED: NOVOLOG FL100 UNIT/1 SUBQ (14:50)
== END 2016-11-14 15:35 | disposition home or self-care (01) | DRG 287 ==
LOC: CED 14:16 → CEDOF 16:54 → CED 16:54 → C3A PCU 17:35 → CEDOF 17:35 → C3A PCU 18:33 → CEDOF 18:33 → C3A PCU 11-08 07:47
PROVIDERS: Emergency Medicine; Family Medicine; Internal Medicine; Internal Medicine Cardiovascular Disease; Internal Medicine Nephrology
PROC: B24BYZZ Ultrasonography of Heart with Aorta using Other Contrast (ICD-10-PCS; principal; 2016-11-08)
PROC: 4A023N8 Measurement of Cardiac Sampling and Pressure, Bilateral, Percutaneous Approach (ICD-10-PCS; 2016-11-13)
PROC: B211YZZ Fluoroscopy of Multiple Coronary Arteries using Other Contrast (ICD-10-PCS; 2016-11-13)
PROC: B215YZZ Fluoroscopy of Left Heart using Other Contrast (ICD-10-PCS; 2016-11-13)
DX: I50.23 Acute on chronic systolic (congestive) heart failure (principal); N17.9 Acute kidney failure, unspecified; I27.2 Other secondary pulmonary hypertension; Z68.42 Body mass index [BMI] 45.0-49.9, adult; E11.65 Type 2 diabetes mellitus with hyperglycemia; E66.01 Morbid (severe) obesity due to excess calories; I48.2 Chronic atrial fibrillation; I11.0 Hypertensive heart disease with heart failure; E87.6 Hypokalemia; R07.9 Chest pain, unspecified; G47.33 Obstructive sleep apnea (adult) (pediatric); E78.5 Hyperlipidemia, unspecified; Z79.01 Long term (current) use of anticoagulants; M19.90 Unspecified osteoarthritis, unspecified site; I08.1 Rheumatic disorders of both mitral and tricuspid valves; I25.10 Atherosclerotic heart disease of native coronary artery without angina pectoris; Z79.4 Long term (current) use of insulin
CPT/HCPCS: 36415; 71010; 80048; 80053; 80061; 81003; 82550; 82553; 82570; 82803; 82810; 82947; 83036; 83735; 83880; 84132; 84156; 84443; 84484; 85025; 85027; 85610; 85730; 87086; 93005; 93306; 94760; 96374; 99152; 99153; 99285; C1769; C1887; C1894; J1250; J1644; J1650; J1815; J2250; J3010; J3475